=== PATIENT | female | born 1985 | race Native Hawaiian/Other Pacific Islander ===

== ENCOUNTER 2024-08-29 10:00 | Emergency (ER) | payer MEDICAID ==
[~2024-08-29] VITALS: Ht 170.2 cm; Wt 81.6 kg
[2024-08-29 10:59] LABS: BASOPHILS % (AUTO) 0.9 % (0.0-2.0); EOSINOPHILS # (AUTO) 0.2 K/uL (0.0-0.7); EOSINOPHILS % (AUTO) 5.1 % (0.0-7.0); HEMATOCRIT 27.2 % (31.2-41.9); HEMOGLOBIN 7.9 g/dL (10.9-14.3); LYMPHOCYTES # (AUTO) 1.7 K/uL (0.8-4.8); LYMPHOCYTES % (AUTO) 37.7 % (20.5-51.5); MEAN CORPUSCULAR HEMOGLOBIN 16.1 uug (24.7-32.8); MEAN CORPUSCULAR HGB CONC 29 g/dL (32.3-35.6); MEAN CORPUSCULAR VOLUME 55.5 fL (75.5-95.3); MONOCYTES # (AUTO) 0.3 K/uL (0.1-1.30); MONOCYTES % (AUTO) 6.9 % (0.0-11.0); NEUTROPHILS # (AUTO) 2.2 K/uL (1.8-8.9); NEUTROPHILS % (AUTO) 49.4 % (38.5-71.5); PLATELET COUNT (AUTO) 203 K/uL (179-408); RED BLOOD CELL COUNT(AUTO) 4.91 MIL/uL (3.63-4.92); RED CELL DISTRIBUTION WIDTH 19.3 % (12.3-17.7); WHITE BLOOD COUNT (AUTO) 4.5 K/uL (3.8-11.8)
[2024-08-29 11:06] LABS: *URINE HCG, QUAL NEGATIVE (NEGATIVE)
[2024-08-29 11:08] LABS: CALCIUM 8.9 mg/dL (8.5-10.1); CARBON DIOXIDE 27 mmol/L (21-32); CHLORIDE 102 mmol/L (98-107); CREATININE 0.7 mg/dL (0.6-1.3); GLUCOSE 101 mg/dL (74-106); POTASSIUM 3.5 mmol/L (3.5-5.1); SODIUM SERUM 137 mmol/L (136-145); UREA NITROGEN, BLOOD 11 mg/dL (7-18)
[2024-08-29 11:08] LABS: *BILIRUBIN,URIN NEGATIVE (NEGATIVE); *CLARITY,URINE CLEAR (CLEAR); *COLOR,URINE YELLOW (YELLOW); *KETONES,URINE NEGATIVE (NEGATIVE); *PROTEIN,URINE NEGATIVE (NEGATIVE); *UROBILINOGEN,URINE 0.2 E.U./dl (NORMAL); LEUKOCYTE ESTERASE ,URINE NEGATIVE (NEGATIVE); NITRITE, URINE NEGATIVE (NEGATIVE); UGLUCOSE NEGATIVE (NEGATIVE)
[2024-08-29 11:10] LABS: DIFFERENTIAL COMMENT 1
[2024-08-29 11:12] LABS: *BLOOD, URINE TRACE (NEGATIVE)
[2024-08-29 11:17] LABS: ALANINE AMINOTRANSFERASE 17 U/L (14-59); ALBUMIN 4.3 g/dL (3.4-5.0); ALKALINE PHOSPHATASE 87 U/L (50-136); ASPARTATE AMINOTRANSFERASE 10 U/L (15-37); BILIRUBIN,DIRECT 0.1 mg/dL (0.0-0.2); BILIRUBIN,TOTAL 0.3 mg/dL (0.2-1.0); TOTAL PROTEIN, SERUM 8.7 g/dL (6.4-8.2)
[2024-08-29 11:25] LABS: THYROID STIMULATING HORMONE 2.357 mIU/mL (0.358-3.740)
[2024-08-29 11:25] LABS: RBC,URINE 0-3 /HPF (0-3)
[2024-08-29 11:26] LABS: BACTERIA,URINE MODERATE /HPF (NONE SEEN); SQUAMOUS EPITHELIAL CELL,UR MODERATE /HPF (NONE SEEN)
[2024-08-29] MEDS ORDERED: NITR100C11 PO (11:43)
[2024-08-29] MEDS ORDERED: FERR-68 PO (11:43)
[2024-08-29 12:24] VITALS: BP 169/112; TEMP 98; O2SAT 100
== END 2024-08-29 12:25 | disposition home or self-care (01) ==
LOC: ER 10:00
DX: R07.89 Other chest pain (principal); R00.2 Palpitations; R10.2 Pelvic and perineal pain; D50.9 Iron deficiency anemia, unspecified; M25.552 Pain in left hip; M25.551 Pain in right hip; I25.10 Atherosclerotic heart disease of native coronary artery without angina pectoris; R10.30 Lower abdominal pain, unspecified; N39.0 Urinary tract infection, site not specified; R03.0 Elevated blood-pressure reading, without diagnosis of hypertension; Z79.899 Other long term (current) drug therapy
CPT/HCPCS: 36415; 71045; 76775; 83690; 84443; 84484; 84703; 85025; A4606; A4663